=== PATIENT | female | born 1975 ===

== ENCOUNTER 2017-04-22 06:10 | Day surgery (SDC) | payer BC ==
[2017-04-18 10:03] VITALS: BMI 26.4
[2017-04-22 06:33] VITALS: RESP 18
[2017-04-22] MEDS ORDERED: Lactated Ringer's 1,000 ML IV ONE ×4 (06:49→09:50)
--- NOTE | 2017-04-22 07:04 | CP.SDSHP ---
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 All Pre-op testing and clearance was in the chart. Pt has exhausted all conservative treatment at this time and is opting for surgical intervention. Pt was explained procedure and post- operative course. All pt's questions were answered to satisfaction. No guarantees were made. Pt understands all risks, benefits and complications of procedure. Pt will follow-up with Dr. Galindo in office Pt. Evaluated Today:Candidate for Anesthesia & Procedure: Yes - Date & Time Date: 04/22/17 Time: 07:06 Short Stay Discharge - Short Stay Discharge Admitting Diagnosis/Reason for Visit: M20.12/M20.642/M21.622/M20.42 Disposition: HOME/ ROUTINE Referrals: Gio Guevara DO [Primary Care Provider] - Follow-up: Follow up with Dr. Galindo in office in 1 week for post-operative care Instructions: Cephalexin (By mouth), Oxycodone/Acetaminophen (By mouth) Progress Note/Discharge Note with Instructions: Patient in good/stable condition for discharge home. Pt to resume medications per medical reconciliation. Resume regular diet. Please keep dressing clean, dry, & intact to surgical site, use plastic bag over bandage for showering, wear post op shoe at all times when ambulating with the assistance of axillary crutches, call clinic if you see signs of infection (redness, swelling, malodor), please make an appointment to see Dr. Galindo in office within 1 week for post-op check.
--- NOTE | 2017-04-22 07:09 | CP.PCM.PN ---
Subjective - Date & Time of Evaluation Date of Evaluation: 04/22/17 Time of Evaluation: 07:06 - Subjective Subjective: 41 year old female patient unremarkable PMHx seen at bedside in [facility] for preoperative evaluation for left foot bunion surgery, tailor's bunion correction , and 5th digit hammertoe correction by Dr. Galindo today. Patient states she has been having pain in her left foot for the past 5 years and has exhausted conservative treatment; patient now opts for surgical intervention. NPO status confirmed. Patient denies N/V/F/D/C/SOB/calf pain. Offers no other pedal complaints at this time. Objective - Vital Signs/Intake and Output Vital Signs (last 24 hours): Temp Pulse Resp BP Pulse Ox 98.3 F 70 18 126/86 100 04/22/17 06:31 04/22/17 06:34 04/22/17 06:31 04/22/17 06:31 04/22/17 06:31 - Constitutional Appears: Well, Non-toxic, No Acute Distress - Extremities Exam Additional comments: VASC: DP and PT pulses palpable 2/4 b/l. CFT <3 seconds to all digits x10. TG warm to warm. No edema noted. No increase in warmth noted. NEURO: Gross sensation intact bilaterally. DERM: No open lesions noted. Skin appears well hydrated ORTHO: Hallux valgus left foot. Prominent medial eminence noted. Prominent 5th metatarsal head noted. Adductovarus 5th digit. 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 Galindo in office
[2017-04-22] MEDS ORDERED: Bupivacaine 0.5% Inj(30mL) IJ ONE (07:10)
[2017-04-22] MEDS ORDERED: ceFAZolin 1 GM in Sodium Chloride 0.9% 100 ML IVPB ONE (07:10)
[2017-04-22] MEDS ORDERED: Lidocaine 1% Inj (20ml) IJ ONE (07:10)
[2017-04-22] MEDS ORDERED: Sodium Chloride 0.9% 500 ML IV SCH (07:15)
[2017-04-22] MEDS ORDERED: ceFAZolin IV 1 gm in Dextrose 1 GM/50 ML BAG IVPB ONE (07:24)
[2017-04-22] MEDS ORDERED: Lidocaine 1% Inj (20ml) ONE (07:24)
[2017-04-22] MEDS ORDERED: Midazolam 2 MG/2 ML VIAL ONE (07:29)
[2017-04-22] MEDS ORDERED: Propofol 10 mg/ml Inj (20 ML) ONE (07:29)
[2017-04-22] MEDS: Bupivacaine 0.5% Inj(30mL) ONE ×3 (08:15→09:45)
[2017-04-22] MEDS ORDERED: ePHEDrine 50 mg/ml Inj ONE (08:36)
[2017-04-22] MEDS: Dexamethasone 4 mg/1 ml ONE ×2 (09:00→09:45)
--- NOTE | 2017-04-22 09:57 | PCM.SURG1 ---
Surgeon's Initial Post Op Note - Surgeon's Notes Surgeon: Dr. Galindo Launderer Hand: Catalina Fraire PGY-3, Jayme Purvis PGY-1 Type of Anesthesia: General LMA Anesthesia Administered By: Dr. Basilio Pre-Operative Diagnosis: Left foot bunion, tailors bunion Operative Findings: see dictation Post-Operative Diagnosis: same Operation Performed: left foot sarmad bunionectomy, mini ojno tailors bunionectomy Specimen/Specimens Removed: none Estimated Blood Loss: EBL {In ML}: 1 Blood Products Given: N/A Drains Used: No Drains Post-Op Condition: Good Date of Surgery/Procedure: 04/22/17 Time of Surgery/Procedure: 08:00
[2017-04-22] MEDS ORDERED: Oxycodone/Acetaminophen 5/325 mg Tab PO PRN ×2 (10:00)
--- NOTE | 2017-04-22 11:19 | RAD ---
PROCEDURE: Left foot dated 04/22/2017. AP and lateral views of the left foot performed through a vaguely radiopaque fixation splint or bandages which partially obscures fine soft tissue and bone detail. HISTORY: s/p left foot bunionectomy COMPARISON: None. FINDINGS: BONES: Status post osteotomy distal aspect of left 1st metatarsal with in situ fixation screws. In addition, there are 2 and I fixation screws traversing the midshaft of the 5th metatarsal as well. Diffuse surrounding soft tissue swelling. JOINTS: Normal. SOFT TISSUES: Normal. OTHER FINDINGS: None. IMPRESSION: Postoperative changes 1st and 5th metatarsals as above with surrounding soft tissue swelling
[2017-04-22 12:39] VITALS: BP 133/78; PULSE 80; TEMP 98; O2SAT 10
--- NOTE | 2017-04-23 06:37 | CARD ---
APPROVED REPORT EKG Measurement Heart [id number] <Conclusion> Normal sinus rhythm Left axis deviation Moderate voltage criteria for LVH, may be normal variant Nonspecific T wave abnormality Abnormal ECG
--- NOTE | 2017-04-26 08:53 | OP ---
DATE OF PROCEDURE: 04/22/2017 PREOPERATIVE DIAGNOSES: 1. Left foot bunion deformity. 2. Left foot tailor's bunion deformity. POSTOPERATIVE DIAGNOSES: 1. Left foot bunion deformity. 2. Left foot tailor's bunion deformity. PROCEDURES PERFORMED: 1. Left foot Andrade bunionectomy. 2. Left foot tailor's bunionectomy with osteotomy. SURGEON: Luca Galindo DPM. QUALITY ASSURANCE TEST PROGRAM MANAGER: Catalina Fraire, PGY-3 and Jayme Purvis, PGY-1. ANESTHESIA: General LMA. ANESTHESIOLOGIST: Don Basilio MD. INDICATIONS FOR PROCEDURE: The patient is a 41-year-old female with the above-mentioned diagnoses. The patient has exhausted conservative treatments at this time and is now requesting surgical intervention. The patient signed a consent after careful explanation of risks, benefits, complications, and alternatives for surgical procedure. No guarantees were given or implied. 2 g of Ancef IV were given to the patient prior to the procedure. N.p.o. status was confirmed prior to taking the patient to the operating room. PREPARATION: The patient was brought to the operating room and placed on the operating room table in supine position. A well-padded pneumatic ankle tourniquet was placed on the patient's left ankle in the supramalleolar position. After induction of IV sedation, a total of 20 mL of 1:1 mixture of 0.5% Marcaine and 1% lidocaine plain were injected in a local block fashion to the left foot. The left foot was then prepped and draped in the usual sterile manner and the procedure began. DESCRIPTION OF PROCEDURE: PROCEDURE #1: Left foot Andrade bunionectomy. Attention was directed to the dorsal aspect of the first metatarsal head of the left foot where an approximately 6-cm linear longitudinal incision was made medial and parallel to the tendon of the extensor hallucis longus and involving the contour of the deformity. The incision was deepened through the subcutaneous tissues using sharp and blunt dissection. Care was taken to identify and retract all vital neurovascular structures. All bleeders were cauterized and ligated as necessary. At this time, an inverted L-type capsulotomy was performed over the dorsal aspect of the first metatarsophalangeal joint. The periosteal and capsular structures were then carefully dissected free off their osseous attachments and reflected medially and laterally thus exposing the head of the first metatarsal into the operative site. Next utilizing a sagittal bone saw, the dorsal and medial prominences were resected and passed from the operative field. At this time, the hip was externally rotated and the knee was flexed to bring the medial surface of the foot superior to allow for better visualization of the medial aspect of the first metatarsal head for the osteotomy cut. Attention was then redirected to the medial aspect of the first metatarsal head where a zbctyus-ivi-[id number] V-type osteotomy was created in the metaphyseal region of the bone. Utilizing an oscillating bone saw, the apex of the osteotomy was pointed distally with the end points . The dorsal arm was made longer to accommodate internal fixation. Upon completion of the osteotomy, the capsular fragment was distracted and shifted laterally into a more corrected position and impacted upon the fifth metatarsal shaft. At this time, two 0.045 K-wires were driven from dorsal to plantar across the osteotomy site to serve as temporary fixation following sequential removals of the K-wire and following standard AO techniques, two 2.0, 12-mm cortical screws were inserted across the osteotomy site with excellent compression noted. Attention was then directed to the remaining medial bone shaft which was resected utilizing oscillating bone saw and passed from the operating field. Correction of the deformity was assessed and noted to be excellent. The wound was then flushed with copious amounts of normal sterile saline. Periosteal and capsular structures were reapproximated and coapted using 2-0 Vicryl. Subcuticular closure was done using 4-0 Vicryl and the skin was closed using 4-0 Monocryl in a running subcuticular fashion. PROCEDURE #2: Left foot tailor's bunionectomy with minimal osteotomy. Attention was directed to the dorsal aspect of the fifth metatarsal head where an approximately 4-cm linear longitudinal incision was created overlying the fifth metatarsal head and shaft. It was deepened through the subcutaneous tissues with care being taken to identify and retract all vital and neurovascular structures. All bleeders were cauterized and ligated as necessary. At this time, a linear periosteal and capsular incision was made overlying the fifth metatarsal from the left side. The periosteal and capsular structures were carefully dissected free off their osseous attachments and reflected medially and laterally thus exposing the head of the fifth metatarsal into the operative site. Next, a osteotomy was created in the distal one half of the fifth metatarsal. Upon completion of the osteotomy, the capsular fragment was distracted and shifted medially into a more corrected position and held in place using a bone clamp. Next, two 2.0 cortical screws, the first measuring 10 mm and second measuring 14 mm, were inserted across the osteotomy site techniques with excellent compression noted. The remaining bone clamp was removed. Attention was directed to the remaining lateral bone shaft which was resected using a bone cutter. The wound was then flushed with copious amounts of normal sterile saline. Periosteal and capsular structures were reapproximated and coapted using 0 Vicryl. Subcuticular tissues were reapproximated and coapted using 4-0 Vicryl. Skin was reapproximated and coapted using 4-0 Monocryl in a running subcuticular fashion. Postoperative bandage included Steri-Strips, saline-soaked gauze, 4x4s, Colin, and Orthoplast. POSTOPERATIVE CONDITION: The patient tolerated the anesthesia and procedure well and was escorted to the recovery room with vital signs stable and neurovascular status intact to the left foot. This patient will follow up with Dr. Galindo in his office next week. Catalina Fraire DPM
== END 2017-04-22 13:18 | disposition home or self-care (01) ==
LOC: H.OPSURG 06:10
PROVIDERS: ATTEND Podiatrist
DX: M20.10 Hallux valgus (acquired), unspecified foot (principal); M20.42 Other hammer toe(s) (acquired), left foot
CPT/HCPCS: 28298; 73620; 88304; 93005; 97116; 97161; C1713; C1769; G8978; G8979; G8980; J0690; J1100; J2001; J2250; J2405; J2704; J3010; J7030; J7070; J7120